=== PATIENT | female | born 1990 | race Caucasian/White ===

== ENCOUNTER 2021-07-21 08:01 | Emergency (ER) | payer MEDICAID, SELFPAY ==
[2021-07-21 08:01] VITALS: BP 124/84; PULSE 82; RESP 16; TEMP 36.4; O2SAT 100; BMI 21.9
[2021-07-21 08:11] VITALS: O2SAT 100
--- NOTE | 2021-07-21 08:20 | EKG12_ITS ---
Test Reason : CP Blood Pressure : / mmHG Vent. Rate : 079 BPM Atrial Rate : 079 BPM P-R Int : 134 ms QRS Dur : 074 ms QT Int : 388 ms P-R-T Axes : 077 059 046 degrees QTc Int : 444 ms Normal sinus rhythm with sinus arrhythmia Normal ECG Confirmed by MISBAH LEVINE, BRANDI ([id number]), pictures editor ISIDRA HUNT ([id number]) on 07/24/2021 1:55:05 PM Referred By: WALESKA Confirmed By:DOUG CRAWLEY MD
--- NOTE | 2021-07-21 08:21 | EX.ED.DYSGE1 ---
HPI History of Present Illness Chief Complaint: Chest Pain Informant: patient Narrative Narrative: 31-year-old female presents for the evaluation of chest heaviness and pain. Patient states her symptoms began 11 days ago. At that time she was seen at an emergency room in the [facility]. She states her EKG was normal. She states is progressively gotten worse. She states she feels it in her upper right back extending across her ribs and into the anterior chest. It is worse with movement or deep breathing lifting driving with her right arm up. She denies any cough. She denies any rash. Other family members were coming to the emergency department following their emergency department visit in [place] today and the patient wanted to get checked out again. She denies any recent injuries [facility] Medical History Asthma Home Medications ondansetron 4 mg PO Q8H PRN PRN #10 tab 03/11/17 [Rx Last Taken Unknown] albuterol sulfate 2 puff INHALATION Q4H PRN 07/21/21 [History Last Taken Unknown] cyclobenzaprine 10 mg PO TID PRN #15 tablet 07/21/21 [Rx Last Taken Unknown] mometasone-formoterol [Dulera] 2 puff INHALATION Q12H 07/21/21 [History Last Taken Unknown] naproxen 500 mg PO BID #14 tab 07/21/21 [Rx Last Taken Unknown] polyethylene glycol 3350 [Miralax] 17 g PO BID 07/21/21 [History Last Taken Unknown] tiotropium bromide [Spiriva with HandiHaler] 1 cap INHALATION DAILY 07/21/21 [History Last Taken Unknown] Allergy/AdvReac Type Severity Reaction Status Date / Time amoxicillin Allergy Hives Verified 07/21/21 08:05 cefdinir [From Omnicef] Allergy Hives Verified 07/21/21 08:05 Surgical History H/O hernia repair History of tonsillectomy Social History Smoking Status: Never smoker ROS ROS ED Constitutional Constitutional ED: Denies chills, fever(s) or weight loss Eyes Eyes: Denies change in vision or diplopia ENT ENT ED: Denies ear pain, rhinorrhea or sore throat Cardiovascular Cardiovascular: Reports chest pain; Denies orthopnea, palpitations or racing heartbeat Respiratory/Chest Respiratory/Chest: Denies cough, dyspnea or orthopnea Gastrointestinal Gastrointestinal: Denies abdominal pain, diarrhea, nausea or vomiting Genitourinary Genitourinary ED: Denies dysuria, hematuria or urinary frequency Musculoskeletal Musculoskeletal: Denies arthralgias or myalgias Integumentary Denies abscess or rash Neurologic Neurologic: Denies headache(s) or weakness Psychiatric Psychiatric: Denies anxiety, depression, suicidal ideation or suicidal thoughts Endocrine Endocrinology: Denies polydipsia, polyphagia or polyuria Allergic/Immunologic Allergic/Immunologic ED: Denies mouth swelling, tongue swelling or urticaria EXAM Physical Exam Const Vital Signs: 07/21/21 08:01 07/21/21 08:11 Temperature 97.6 F L Temperature Source Oral Pulse Rate 82 Respiratory Rate 16 Respiratory Effort Normal Non-Labored Blood Pressure 124/84 H Blood Pressure Mean 97 Pulse Ox 100 100 Oxygen Delivery Method Room Air Room Air Positive well nourished and well developed General Appearance ED: well developed HEENT Reports normocephalic, head/scalp atraumatic, TM's clear and moist mucous membranes Negative for trauma Tympanic Membrane ED: Yes TM's clear Eyes PERRL and EOMs intact bilaterally Neck no lymphadenopathy, supple and no JVD Chest Wall Chest Narrative: Tender to palpation in the right upper anterior and posterior chest wall recreates her pain Resp normal respiratory effort and clear to auscultation bilaterally Cardio regular rate, regular rhythm and no murmurs GI normal to inspection, nondistended, normoactive bowel sounds and non-tender Palpation: soft Back/Spine no CVA tenderness and normal ROM Back/Spine Narrative: Tender to palpation in the right upper posterior back Extremity normal to inspection General Extremety ED: Negative for edema General Extremity: Negative for edema Neuro oriented x3 and CN's II-XII intact bilaterally Sensorium / Orientation: alert Motor Exam: strength 5/5 throughout Psych mental status grossly normal Mood & Affect: Negative for depressed or tearful Skin no rashes or lesions noted and no wounds MDM MDM MDM Narrative Medical decision making narrative: My interpretation of the chest x-ray is no acute process. Patient has had symptoms now for 11 days. Her EKG is a normal sinus rhythm. Her vital signs are otherwise stable. Her pain is reproducible with palpation and with movement. I think this is most likely musculoskeletal in nature. We can treat with anti-inflammatories and some Flexeril recommend heat and stretching follow-up with primary care if not improved Radiography Diagnostic Testing: Clinical Impression(s) from Imaging Studies Chest X-Ray 07/21/21 08:26 IMPRESSION: Normal x-ray examination of the chest. Electronically Signed: Timmy Vinson MD at 8:41 EDT , EKG Initial EKG: Attestation: I personally reviewed and interpreted this EKG as follows: Comments: Sinus rhythm with a ventricular rate of 79 bpm. No concerning features of ACS or ectopy noted Discharge Plan Triage Chief Complaint: Chest Pain ED Provider: Jimi Zavala Dx/Rx/DC Orders Clinical Impression: Acute chest wall pain Instructions: ED Strain Chest Wall Prescriptions: New cyclobenzaprine [cyclobenzaprine] 10 MG tablet 10 mg PO TID PRN (Reason: Muscle Spasm) Qty: 15 RF: 0 naproxen 500 MG tablet 500 mg PO BID Qty: 14 RF: 0 No Action ondansetron 4 MG tablet 4 mg PO Q8H PRN PRN (Reason: Nausea) Qty: 10 RF: 0 polyethylene glycol 3350 [Miralax] 17 gram/dose Powder 17 g PO BID RF: 0 albuterol sulfate 90 mcg/actuation HFA aerosol inhaler 2 puff INHALATION Q4H PRN (Reason: sob) RF: 0 Spiriva with HandiHaler 18 mcg Capsule, W/Inhalation Device 1 cap INHALATION DAILY RF: 0 Dulera 50-5 mcg/actuation Hfa Aerosol Inhaler 2 puff INHALATION Q12H RF: 0 Primary Care Provider: Care Physician,No Primary Referrals: Care Physician,No Primary [Primary Care Provider] - Disposition Disposition: Home, Self Care
--- NOTE | 2021-07-21 08:26 | RAD_ITS ---
STUDY: X-RAY CHEST REASON FOR EXAM: Female, 31 years old. 4 day history of chest pain. TECHNIQUE: Single AP portable view of the chest. COMPARISON: None. FINDINGS: EKG electrodes are seen. The lungs are clear and expanded. There is no demonstrated pleural abnormality. Normal size heart. Normal mediastinum and latoya. Normal visualized pulmonary arteries. Normal visualized aortic arch and descending thoracic aorta. Normal visualized thoracic spine. Normal visualized ribs, clavicles, and shoulders. There is no demonstrated abnormality of the visualized soft tissue structures of the upper abdomen. RAD/Chest 1 View (Portable) IMPRESSION: Normal x-ray examination of the chest. Electronically Signed: Timmy Vinson MD at 8:41 EDT ,
[2021-07-21 09:07] VITALS: BP 118/75; PULSE 64; RESP 16; O2SAT 99
== END 2021-07-21 09:10 | disposition home or self-care (01) ==
PROVIDERS: Emergency Provider Emergency Medicine; Visit Provider Emergency Medicine
DX: R07.89 Other chest pain (principal); J45.909 Unspecified asthma, uncomplicated; Z79.899 Other long term (current) drug therapy
CPT/HCPCS: 71045; 93005; 99283